=== PATIENT | female | born 1965 | race Caucasian/White ===

== ENCOUNTER 2018-01-22 18:03 | Emergency (ER) | payer OTHER ==
--- NOTE | 2018-01-22 19:47 | CT ---
CT BRAIN WITHOUT CONTRAST: Date: 01-22-18 FINDINGS: The ventricles are normal in size with no shift. No intracranial bleeding or extraaxial hematoma was seen. There is no sign of mass, edema, or stroke. The skull appears intact. The sphenoid sinus and ma stoid air cells are clear. Laceration and scalp swelling are seen in the left frontotemporal region. IMPRESSION: No acute intracranial finding. POS: HOME
== END 2018-01-22 19:46 ==
LOC: BURERS 18:03
DX: S01.01XA Laceration without foreign body of scalp, initial encounter (principal); Y00.XXXA Assault by blunt object, initial encounter
CPT/HCPCS: 12002; 70450